=== PATIENT | male | born 1980 | race Caucasian/White ===

== ENCOUNTER 2019-03-06 22:06 | Emergency (ER) | payer BC ==
[~2019-03-06] VITALS: Ht 172.7 cm; Wt 81.6 kg
[2019-03-06] MEDS ORDERED: FLUORESCEIN SODIUM 1 MG STRIP ONE (22:21)
[2019-03-06] MEDS ORDERED: TETRACAINE HCL 0.5% OPHT DROP 2 ML BOTTLE ONE (22:21)
--- NOTE | 2019-03-06 22:23 | NUR ---
Dr. Garcia at bedside for MSE.
[2019-03-06] MEDS ORDERED: TETRACAINE HCL 0.5% OPHT DROP 2 ML BOTTLE OP ONE (22:30)
[2019-03-06] MEDS ORDERED: FLUORESCEIN SODIUM 1 MG STRIP OP ONE (22:30)
--- NOTE | 2019-03-06 22:42 | NUR ---
Patient discharged to home in stable conditon. Written and verbal after care instructions given. Patient verbalizes understanding of instructions. Pt ambulated out of ER with steady gait, no acute signs of distress, VSS, all belongings taken.
[2019-03-06 22:43] VITALS: BP 148/77
== END 2019-03-06 22:43 | disposition home or self-care (01) ==
LOC: ER 22:06
DX: H10.211 Acute toxic conjunctivitis, right eye (principal); F17.200 Nicotine dependence, unspecified, uncomplicated
CPT/HCPCS: A4663